=== PATIENT | female | born 1965 | race Caucasian/White ===

== ENCOUNTER → 2018-01-03 | Outpatient (CLI) | payer BC | LOC: MAMMO 15:32 | PROVIDERS: ATTEND Family Medicine | DX: Z00.00 Encounter for general adult medical examination without abnormal findings (principal) | CPT/HCPCS: 77067 ==

== ENCOUNTER → 2018-02-04 | Day surgery (SDC) | payer BC ==
[~2018-02-04] MED LIST: ATORVASTATIN CA20 MG PO; FENTANYL CITRATE/PF 100MCG/2 ML INJ ONE; GLUCAGON FOR INJ 1 MG VIAL ONE; LIDOCAINE HCL 2% LOCAL INJ 5 ML SDV VIAL INJ ONE; MIDAZOLAM HCL 2 MG/2 ML VIAL ONE; MONTELUKAST SOD10 MG PO; SYMBICORT 16010.2 GM INH
--- OUTSIDE RECORDS SUMMARY | 2018-02-04 08:12 | XMS REPORT ---
Author Author [facility] Address Unknown Phone Unavailable Care Team Providers Care [place]razer Name Role Phone MADISON HA Unavailable Unavailable Problems This patient has no known problems. Allergies, Adverse Reactions, Alerts This patient has no known allergies or adverse reactions. Medications This patient has no known medications. Results Test Description Test Time Test Comments Text Results Atomic Results Result Comments MAMMOGRAPHY DIGITAL SCR BILAT [place] [address] Patient Name: LUCIUS HO MR #: [id number] : 1965 Age/Sex: 52/F Req #: [id number] [facility] Physician: Ordered by: HA ANDREW DO Report #: [id number] Location: MAMMO Room/Bed: Procedure: [id number] MG/MAMMOGRAPHY DIGITAL SCR BILAT Exam Date: 01/03/18 Exam Time: 1550 REPORT STATUS: Signed # [id number] - [id number] #BILATERAL DIGITAL SCREENING MAMMOGRAM WITH CAD: 01/03 CLINICAL: Routine screening. Comparison is made to exam dated: mammogram - [facility]. Current study contains 4 films. The tissue of both breasts is heterogeneously dense. This may lower the sensitivity of mammography. Current study was also evaluated with a Computer Aided Detection (CAD) system. There are benign intramammary nodes in both breasts. There also are post operative findings in the right breast with a scar marker on the right breast. No significant masses, calcifications, or other findings are seen in either breast. There has been no significant interval change. IMPRESSION: BENIGN There is no mammographic evidence of malignancy. A 1 year screening mammogram is recommended. The patient will be notified by letter of the results. Paola Clayton Jr., D.O. cw/:01/23/2018 10:01:22 Fender Repairer: Marsha PICKARD(Kim)(Maria T), [facility] letter sent: Compared to Prior B9 Mammogram BI-RADS: 2 Benign Dictated By: PAOLA CLAYTON DO 1001 Transcribed By: MI on 01/23/18 1001 COPY TO: MADISON HA DO
--- NOTE | 2018-02-04 12:36 | Operative Report ---
DATE OF PROCEDURE: February 04, 2018 REFERRING PHYSICIAN: Dr. Amrik Ha. PROCEDURE PERFORMED: Colonoscopy and polypectomy. INDICATIONS FOR COLONOSCOPY: Colorectal cancer screening. MEDICATION: Patient was done under MAC. Please see anesthesiologist's note. PROCEDURE: With patient in left lateral decubitus position, flexible fiberoptic Olympus colonoscope was inserted into the rectum with ease and advanced all the way to the cecum. It was then withdrawn slowly. Mucosa overlying the cecum, ascending colon and transverse colon appeared to be within normal limits. Two polyps were snared, one polyp was hot biopsied from the descending colon. Some diverticular disease was noted in the sigmoid colon. Five polyps were snared and four polyps were hot biopsied from the sigmoid colon. Two polyps were hot biopsied and one polyp was snared from the rectum. The scope was then retroflexed into the distal rectum and small internal hemorrhoids were noted none of which was actively bleeding. The scope was then straightened out. The rectosigmoid area as well as the distal rectal area were decompressed. Scope subsequently withdrawn. Patient tolerated the procedure well. IMPRESSION 1. Descending colon polyps, two snared and one hot biopsied. 2. Diverticulosis. 3. Sigmoid colon polyps snared times five and hot biopsied times four. 4. Rectal polyps, one snared and two hot biopsied. 5. Internal hemorrhoids none actively bleeding. A total of 15 polyps were removed. PLAN: Follow up histology. Initiate high-fiber low-fat diet. Initiate high-fiber supplement. Patient will need a followup colonoscopy in 1 year. Job#: [id number] cc:ALVIN HA DO
== END | disposition home or self-care (01) ==
LOC: OR 08:09
PROVIDERS: ATTEND Internal Medicine Gastroenterology
DX: Z12.11 Encounter for screening for malignant neoplasm of colon (principal); D12.5 Benign neoplasm of sigmoid colon; K62.1 Rectal polyp; K57.30 Diverticulosis of large intestine without perforation or abscess without bleeding; K64.8 Other hemorrhoids; J44.9 Chronic obstructive pulmonary disease, unspecified; F17.210 Nicotine dependence, cigarettes, uncomplicated; Z01.810 Encounter for preprocedural cardiovascular examination; Z68.27 Body mass index [BMI] 27.0-27.9, adult
CPT/HCPCS: 45384; 45385; 93005; J1610; J2001; J2250; 45378

== ENCOUNTER → 2019-03-01 | Day surgery (SDC) | payer BC ==
[~2019-03-01] MED LIST changes: +HYOSCYAMINE SULFATE 0.5 MG/ML INJ ONE; +PROPOFOL IV EMULSION 10 MG/ML 50 ML VIAL ONE
[2019-03-01 19:15] VITALS: BP 106/87
--- NOTE | 2019-03-02 01:30 | Operative Report ---
DATE OF PROCEDURE: 03/01/2019 SURGEON: Paddy Ramos MD PROCEDURE: Colonoscopy with polypectomy. INDICATIONS FOR COLONOSCOPY: Surveillance colonoscopy, history of numerous colon polyps. MEDICATIONS: The patient was done under MAC, please see anesthesiologist's note. PROCEDURE IN DETAIL: With the patient in the left lateral decubitus position, flexible fiberoptic Olympus colonoscope was inserted into the rectum with ease and advanced all the way to the cecum. An approximately 5 mm sessile polyp was snared from the cecum. One polyp was hot biopsied from the ascending colon. Four polyps were hot biopsied from the transverse colon. Three polyps were hot biopsied from the descending colon. There was some minimal scattered diverticular disease noted and eight polyps were hot biopsied from the sigmoid colon and nine polyps were hot biopsied from the rectum. The scope was then retroflexed into the distal rectum and small internal hemorrhoids were noted, none of which was actively bleeding. The scope was then straightened out, it was subsequently withdrawn, the patient tolerated the procedure well. IMPRESSION: 1. Cecal polyp x1, snared. 2. Ascending colon polyp, hot biopsied. 3. Transverse colon polyps x4, hot biopsied. 4. Descending colon polyps x3, hot biopsied. 5. Sigmoid colon polyps x9, hot biopsied. 6. Diverticulosis. 7. Rectal polyps x9, hot biopsied. 8. Internal hemorrhoids, none actively bleeding. PLAN: Follow up histology. Initiate high-fiber, low-fat diet. Initiate high-fiber supplement. The patient by definition has hyper-polyposis syndrome. She will need a followup colonoscopy in one year. Paddy Ramos MD [facility] [place]/SANDYL /[id number] cc: Ruddy Bartholomew DO
== END | disposition home or self-care (01) ==
LOC: OR 14:20
PROVIDERS: ATTEND Internal Medicine Gastroenterology
DX: K57.30 Diverticulosis of large intestine without perforation or abscess without bleeding (principal); D12.0 Benign neoplasm of cecum; D12.4 Benign neoplasm of descending colon; K62.1 Rectal polyp; K64.8 Other hemorrhoids; R03.0 Elevated blood-pressure reading, without diagnosis of hypertension; J45.909 Unspecified asthma, uncomplicated; E78.00 Pure hypercholesterolemia, unspecified; F17.210 Nicotine dependence, cigarettes, uncomplicated; Z01.810 Encounter for preprocedural cardiovascular examination; Z68.27 Body mass index [BMI] 27.0-27.9, adult
CPT/HCPCS: 45384; 45385; 93005; J1610; J1980; J2001; J2250; J2704